=== PATIENT | female | born 1955 | race Caucasian/White ===

== ENCOUNTER → 2018-02-14 09:31 | Outpatient (CLI) | payer OTHER, SELFPAY ==
--- NOTE | 2018-02-14 | DI.US.S_ITS ---
PROCEDURE: US PELVIC COMPLETE INDICATIONS: POST MENOPAUSAL BLEEDING TECHNIQUE: Real-time scanning was performed of the pelvic organs, with image documentation. Additional endovaginal scanning was necessary due to incomplete visualization of the adnexal and endometrial structures by transabdominal scanning. COMPARISON: None. FINDINGS: Transabdominal scanning: Limited scanning through the kidneys shows no hydronephrosis. No pathologic free abdominal or pelvic fluid. Endovaginal scanning: Uterus: Uterus is normal in size at 7.5 x 3.6 cm. The endometrium measures 4.0 mm in combined thickness. Trace endometrial fluid present and there is 8.8 x 0.6 x 0.4 cm echogenic, polypoid endometrial mass present. Vascular stalk is present. Multiple fibroids present largest measuring 2.9 x 2.2 x 2.8 cm. Ovaries: Simple cyst involves the right ovary measuring 13 mm and there are multiple subcentimeter left follicular cysts. No adnexal masses. IMPRESSION: 1. Echogenic, polypoid appearing endometrial mass present with a vascular stalk and there is small amount of adjacent endometrial free fluid. Although findings may be related to polyp, other endometrial neoplastic processes including endometrial carcinoma cannot be excluded. Gynecologic consultation is recommended. 2. Multiple fibroids largest measuring up to 2.9 cm. Dictated by: Leodan VALENZUELA Interpreted: Marie Simmons MD on 02/14/2018 at 12:53 Approved by: Marie Simmons M.D. on 02/14/2018 at 15:10
[2018-02-14 10:27] LABS: Alanine Aminotransferase 34 IU/L (9-52); Albumin 4.2 g/dL (3.5-5.0); Albumin Globulin Ratio 1.4 (1.0-2.8); Alkaline Phosphatase 71 U/L (38-126); Aspartate Aminotransferase 47 IU/L (14-36); BUN Creatinine Ratio 24.3 (6-22); Bilirubin Total 0.5 mg/dL (0.2-1.3); Calcium 9.1 mg/dL (8.4-10.2); Cholesterol 197 mg/dL (140-199); Estimated Glomerular Filt Rate > 60.0 mL/min (>60); Glucose 98 mg/dL (80-110); HDL Cholesterol 74 mg/dL (40-60); HEMOLYSIS 15 (0-50); LDL Cholesterol Calculated 111 mg/dL (<100); Potassium 4.6 mmol/L (3.4-5.1); Sodium 141 mmol/L (137-145); Total Protein 7.2 g/dL (6.3-8.2); Triglycerides 60 mg/dL (35-150)
== END ==
PROVIDERS: PCP Internal Medicine; Visit Provider Internal Medicine
DX: Z00.00 Encounter for general adult medical examination without abnormal findings (principal); D25.9 Leiomyoma of uterus, unspecified; N95.0 Postmenopausal bleeding
CPT/HCPCS: 36415; 76830; 76856; 80053; 80061

== ENCOUNTER → 2018-09-02 08:05 | Outpatient (CLI) | payer OTHER, SELFPAY ==
--- NOTE | 2018-09-02 08:06 | DI.US.S_ITS ---
PROCEDURE: US PELVIC COMPLETE INDICATIONS: ENDOMETRIAL POLYP TECHNIQUE: Real-time scanning was performed of the pelvic organs, with image documentation. Additional endovaginal scanning was necessary due to incomplete visualization of the adnexal and endometrial structures by transabdominal scanning. COMPARISON: [facility], , US PELVIC COMPLETE, 02/14/2018, 10:39. FINDINGS: Transabdominal scanning: Limited scanning through the kidneys shows no hydronephrosis. No pathologic free abdominal or pelvic fluid. Endovaginal scanning: Uterus: Uterus is normal in size at 7.1 x 3.2 cm. The endometrium measures 3.5 mm in combined thickness. Isoechoic, solid appearing polypoid mass again seen within the endometrial complex not significantly changed measuring 0.6 x 0.4 x 0.6 cm. 3 intramural fibroids redemonstrated, largest measuring 3.3 x 2.0 x 3.2 cm unchanged from prior examination. Ovaries: The ovaries normal size measuring 3.0 x 1.1 x 1.3 cm on the right and 2.2 x 1.2 x 1.0 cm on the left. Simple cyst involves the right ovary measuring 13 mm. IMPRESSION: 1. Polypoid mass again visualized within the endometrial complex not significantly changed from prior examination likely representing an endometrial polyp. If indicated, hysterosonogram could be performed for further characterization otherwise continued sonographic surveillance is recommended to exclude other endometrial processes such as endometrial carcinoma. 2. Multiple intramural fibroids redemonstrated. 3. Simple right ovarian cyst measuring 13 mm. Dictated by: Leodan W[place] Interpreted: Rae Davis MD on 09/02/2018 at 10:31 Approved by: Rae Davis MD, PhD on 09/02/2018 at 16:21
== END ==
PROVIDERS: PCP Internal Medicine; Visit Provider Specialist
DX: D25.1 Intramural leiomyoma of uterus (principal); N84.0 Polyp of corpus uteri; N83.291 Other ovarian cyst, right side; R93.89 Abnormal findings on diagnostic imaging of other specified body structures
CPT/HCPCS: 76830; 76856

== ENCOUNTER → 2020-09-22 14:35 | Outpatient (ROUT) | payer OTHER, SELFPAY ==
[2020-09-22 14:55] LABS: Alanine Aminotransferase 33 IU/L (<35); Albumin 4.4 g/dL (3.5-5.0); Albumin Globulin Ratio 1.5 (1.0-2.8); Alkaline Phosphatase 83 U/L (38-126); Aspartate Aminotransferase 55 IU/L (14-36); BUN Creatinine Ratio 22.9 (6-22); Bilirubin Total 0.6 mg/dL (0.2-1.3); Blood Urea Nitrogen 16 mg/dL (7-17); Calcium 9.6 mg/dL (8.4-10.2); Carbon Dioxide 27 mmol/L (22-32); Chloride 106 mmol/L (98-107); Cholesterol 219 mg/dL (140-199); Estimated Glomerular Filt Rate > 60.0 mL/min (>60); Glucose 100 mg/dL (80-110); HDL Cholesterol 89 mg/dL (40-60); HEMOLYSIS < 15 (0-50); LDL Cholesterol Calculated 117 mg/dL (<100); Potassium 4.4 mmol/L (3.4-5.1); Sodium 138 mmol/L (137-145); Total Protein 7.4 g/dL (6.3-8.2); Triglycerides 64 mg/dL (35-150)
== END ==
PROVIDERS: PCP Internal Medicine; Visit Provider Internal Medicine
DX: Z00.00 Encounter for general adult medical examination without abnormal findings (principal); E78.5 Hyperlipidemia, unspecified
CPT/HCPCS: 80053; 80061

== ENCOUNTER → 2020-10-12 15:24 | Outpatient (CLI) | payer OTHER, SELFPAY ==
--- NOTE | 2020-10-12 | DI.MG.S_ITS ---
BILATERAL DIGITAL SCREENING MAMMOGRAM 3D/2D WITH CAD: 10/12/2020 CLINICAL: Routine screening. Comparison is made to exams dated: 12/06/2017 mammogram - [facility], 02/21/2016 mammogram, and 09/09/2014 mammogram - [facility]. There are scattered fibroglandular elements in both breasts. Current study was also evaluated with a Computer Aided Detection (CAD) system. No significant masses, calcifications, or other findings are seen in either breast. There has been no significant interval change. IMPRESSION: NEGATIVE There is no mammographic evidence of malignancy. A 1 year screening mammogram is recommended. This exam was interpreted at Station ID: [id number]. NOTE: For mammograms, a report in lay terms will be sent to the patient. Approximately 15% of breast malignancies will not be visualized mammographically. In the management of a palpable breast mass, a negative mammogram must not discourage biopsy of a clinically suspicious lesion. Electronically Signed By: Ray stover/eleonora:10/12/2020 16:42:16 letter sent: Normal Exam ACR BI-RADS Category 1: Negative 3341F
== END ==
PROVIDERS: PCP Internal Medicine; Referring Provider Internal Medicine; Visit Provider Internal Medicine
DX: Z12.31 Encounter for screening mammogram for malignant neoplasm of breast (principal)
CPT/HCPCS: 77063; 77067

== ENCOUNTER → 2022-02-17 09:59 | Outpatient (CLI) | payer MEDICARE, OTHER, SELFPAY ==
[2022-02-17 10:31] LABS: Hematocrit 44.6 % (36-46); Hemoglobin 15.2 g/dL (12.0-16.0); Mean Corpuscular HGB Conc 34.1 % (30-36); Mean Corpuscular Hemoglobin 29.1 PG (26-34); Mean Corpuscular Volume 85.2 fL (80-100); Platelet Count 177 X10^3/uL (150-400); Red Blood Cell Count 5.23 X10^6/uL (4.0-5.2); Red Cell Distribution Width 12.8 % (11.6-14.8); White Blood Cell Count 4.3 X10^3/uL (4.5-11.0)
[2022-02-17 10:47] LABS: Alanine Aminotransferase 39 IU/L (<35); Albumin 4.8 g/dL (3.5-5.0); Albumin Globulin Ratio 1.5 (1.0-2.8); BUN Creatinine Ratio 30.6 (6-22); Bilirubin Total 0.8 mg/dL (0.2-1.3); Blood Urea Nitrogen 22 mg/dL (7-17); Calcium 8.9 mg/dL (8.4-10.2); Carbon Dioxide 29 mmol/L (22-32); Chloride 105 mmol/L (98-107); Cholesterol 242 mg/dL (140-199); Estimated Glomerular Filt Rate > 60 mL/min (>60); Globulin 3.2 g/dL (1.7-4.1); Glucose 96 mg/dL (80-110); HDL Cholesterol 78 mg/dL (40-60); HEMOLYSIS 72 (0-50); LDL Cholesterol Calculated 149 mg/dL (<100); Sodium 139 mmol/L (137-145); Triglycerides 73 mg/dL (35-150)
[2022-02-17 10:48] LABS: Aspartate Aminotransferase 75 IU/L (14-36)
[2022-02-17 10:49] LABS: Alkaline Phosphatase 68 U/L (38-126); Potassium 4.5 mmol/L (3.4-5.1)
[2022-02-17 11:15] LABS: TSH w/ Reflex to FT4 1.56 uIU/mL (0.47-4.68)
[2022-02-17 19:21] LABS: Hepatitis B Surface Antigen NEGATIVE s/c (NEGATIVE)
[2022-02-17 19:22] LABS: Hep C Virus Ab w/Reflex Quant NEGATIVE s/c (NEGATIVE)
[2022-02-17 19:39] LABS: HEMOLYSIS < 15 (0-50); Iron 114 ug/dL (37-170)
[2022-02-17 19:50] LABS: Percent Iron Saturation 37 % (15-50); Total Iron Binding Capacity 310 ug/dL (265-497); Transferrin 246 mg/dL (206-381)
[2022-02-17 20:11] LABS: Ferritin 107 ng/mL (11-264)
== END ==
PROVIDERS: PCP Internal Medicine; Referring Provider Internal Medicine; Visit Provider Internal Medicine
DX: E78.2 Mixed hyperlipidemia (principal); E83.19 Other disorders of iron metabolism; N95.1 Menopausal and female climacteric states; Z11.59 Encounter for screening for other viral diseases
CPT/HCPCS: 36415; 80053; 80061; 82728; 83540; 83550; 84443; 85027; 86803; 87340

== ENCOUNTER → 2022-03-22 10:47 | Outpatient (CLI) | payer MEDICARE, OTHER, SELFPAY ==
--- NOTE | 2022-03-22 | DI.MG.S_ITS ---
BILATERAL DIGITAL SCREENING MAMMOGRAM 3D/2D WITH CAD: 03/22/2022 CLINICAL: Routine screening. Comparison is made to exams dated: 10/12/2020 mammogram, 12/06/2017 mammogram - [facility], and 02/21/2016 mammogram - [facility]. There are scattered fibroglandular elements in both breasts. Current study was also evaluated with a Computer Aided Detection (CAD) system. No significant masses, calcifications, or other findings are seen in either breast. There has been no significant interval change. IMPRESSION: NEGATIVE There is no mammographic evidence of malignancy. A 1 year screening mammogram is recommended. This exam was interpreted at Station ID: [id number]. NOTE: For mammograms, a report in lay terms will be sent to the patient. Approximately 15% of breast malignancies will not be visualized mammographically. In the management of a palpable breast mass, a negative mammogram must not discourage biopsy of a clinically suspicious lesion. Electronically Signed By: Ray stover/eleonora:03/22/2022 11:27:52 letter sent: Normal Exam ACR BI-RADS Category 1: Negative 3341F
== END ==
PROVIDERS: PCP Internal Medicine; Referring Provider Internal Medicine; Visit Provider Internal Medicine
DX: Z12.31 Encounter for screening mammogram for malignant neoplasm of breast (principal)
CPT/HCPCS: 77063; 77067

== ENCOUNTER 2023-02-20 11:49 | Emergency (ER) | payer MEDICARE, OTHER, SELFPAY ==
[2023-02-20] VITALS (12 sets, daily range): BP systolic 125–168; BP diastolic 66–105; PULSE 57–72; RESP 16–24; TEMP 36.4; O2SAT 98–100; BMI 27.2
--- NOTE | 2023-02-20 12:10 | DI.RAD.S_ITS ---
PROCEDURE: XR CHEST 1V INDICATIONS: chest pain TECHNIQUE: One view of the chest was acquired. COMPARISON: None. FINDINGS: Surgical changes and devices: None. Lungs and pleura: Lungs are clear. No pleural effusions or pneumothorax. Mediastinum: Mediastinal contours appear normal. Heart size is normal. Bones and chest wall: No suspicious bony lesions. Overlying soft tissues appear unremarkable. IMPRESSION: No acute cardiopulmonary process. Dictated by: Roger Watkins M.D. on 02/20/2023 at 11:38 Approved by: Roger Watkins M.D. on 02/20/2023 at 11:38
--- NOTE | 2023-02-20 14:08 | PC.NURSE ---
Patient reports improvement in symptoms. Drinking oral fluids, tolerating well.
--- NOTE | 2023-02-20 15:13 | PC.NURSE ---
unable to obtain iv access. Dr. Castellon aware.
--- NOTE | 2023-02-20 15:28 | ED_ITS ---
HPI - Syncope General Chief Complaint: Syncope Stated Complaint: passed out and threw up in car Time Seen by Provider: 02/20/23 15:19 Source: patient Mode of arrival: Ambulatory Limitations: no limitations History of Present Illness HPI narrative: This is a 67-year-old female with history of x2. Patient states today she went to donate blood she got about [address] her duration started feel, dizzy and had a syncopal episode where she passed out. She was lying or seated when this occurred. She states it lasted less than a minute. Was witnessed by the staff. She did have an episode of urinary incontinence. She felt woozy afterwards and sort of nauseated. They tried to feed her she was not really able to eat food but she is had half cup of electrolyte water and half cup of regular water. She slowly improved. She started to feel better and states that she went to the bathroom had a bowel movement which she describes as large. She denies any diarrhea or black or bloody stools. She states she did not have any chest pain or shortness of breath during this episode. No urinary symptoms otherwise no dysuria urgency or frequency. And then got in the car on the way home started feeling lightheaded and nauseated and passed out again for several seconds. Patient states she did not feel totally normal in between each episode. Patient states she does not take any daily medications. She states she feels hungry right now. She states she feels back to normal. She denies any medical issues otherwise. She states she had issues with some lab draws when she was younger but has had C-sections and does not typically have issues at this time. She has never donated blood before. She states her only prior surgery is . She is allergic to ampicillin. No tobacco, 1 glass of wine nightly, no illicit. She is accompanied by her who brought her here. Related Data Previous Rx's Medication Instructions Recorded estradiol 0.01% (0.1 mg/gram) 1 appful vaginal DAILY #42.5 grams 08/30/22 vaginal cream Allergies Allergy/AdvReac Type Severity Reaction Status Date / Time ampicillin Allergy Verified 07/13/22 08:59 Review of Systems Review of Systems ROS Unobtainable: All systems reviewed & are unremarkable except as noted in HPI and below Patient History Medical History Medicare annual wellness visit, initial Menopausal syndrome Mixed hyperlipidemia Social History Smoking Status: Never smoker Smoking Status: Never smoker alcohol intake frequency: 0-2 drinks per day Substance Use Type: does not use Exam Narrative Exam Narrative: GENERAL: Alert and oriented x three, well-nourished female in mild distress. HEENT: Head normocephalic, atraumatic, EOMI, pupils reactive, face symmetric, moist mucous membranes, no pale conjunctiva. NECK: Supple, full range of motion CARDIOVASCULAR: Regular rate and rhythm without murmurs, rubs or gallops. No JVD. No swelling bilateral lower extremities. RESPIRATORY: Breath sounds equal bilaterally, no wheezes rales or rhonchi. No tachypnea or accessory muscle use. ABDOMEN: Soft, nontender. Normoactive bowel sounds all 4 quadrants. No guarding or rebound, rigidity, no mass : No CVA tenderness EXTREMITIES: Normal range of motion, no clubbing or edema. Neurovascularly intact NEUROLOGICAL: Cranial nerves II through XII grossly intact. Moving all extremities SKIN: Warm, dry, no petechiae, no rashes or lesions. Initial Vital Signs Initial Vital Signs: Vital Signs Temperature 97.5 F L 02/20/23 12:07 Pulse Rate 60 02/20/23 12:07 Respiratory Rate 18 02/20/23 12:07 Blood Pressure 149/105 H 02/20/23 12:07 Pulse Oximetry 99 02/20/23 12:07 Oxygen Delivery Method Room Air 02/20/23 12:07 Course Orders Ordered: ED Orders 02/20/23 12:10 XR chest 1V Stat EKG-12 Lead Stat Discontinued Medications Aspirin (Aspirin 81 Mg Chew Tab) 324 mg PO NOW ONE Stop: 02/20/23 12:11 Last Admin: 02/20/23 12:12 Dose: Not Given Documented By: RLS Vital Signs Vital signs: Vital Signs - 8 hr 02/20/23 12:07 02/20/23 12:29 02/20/23 12:30 Temperature 97.5 F L Pulse Rate 60 61 60 Respiratory Rate 18 Blood Pressure 149/105 H Pulse Oximetry 99 99 99 Oxygen Delivery Method Room Air 02/20/23 12:31 02/20/23 12:31 02/20/23 13:00 Temperature Pulse Rate 61 Respiratory Rate Blood Pressure 168/83 H 141/77 H Pulse Oximetry 99 Oxygen Delivery Method 02/20/23 13:00 02/20/23 13:30 02/20/23 13:30 Temperature Pulse Rate 59 L 58 L Respiratory Rate 16 Blood Pressure 134/74 Pulse Oximetry 100 100 Oxygen Delivery Method Room Air 02/20/23 14:00 02/20/23 14:01 02/20/23 14:01 Temperature Pulse Rate 60 57 L Respiratory Rate 24 22 Blood Pressure 131/66 Pulse Oximetry 99 99 Oxygen Delivery Method Room Air 02/20/23 14:30 02/20/23 15:00 02/20/23 15:00 Temperature Pulse Rate 58 L 62 Respiratory Rate 20 18 Blood Pressure 126/71 Pulse Oximetry 98 98 Oxygen Delivery Method 02/20/23 16:04 02/20/23 15:30 02/20/23 15:30 Temperature Pulse Rate 72 66 Respiratory Rate 18 23 Blood Pressure 125/71 Pulse Oximetry 98 99 Oxygen Delivery Method MDM - Syncope ECG Data Attestation: I personally reviewed and interpreted this ECG as follows: Interpretation: Sinus bradycardia, rate of 56 CT, 186, QRS of 84 and QTC of 432. No acute ST changes appreciated. Q-wave in V1 V2. No priors for comparison. MDM Narrative Medical decision making narrative: Discussed with patient she is feeling improved she ate and drank here after my evaluation tolerated well ambulated without issue. Discussed I would like to obtain blood work they attempted twice and patient politely refused additional lab draws. She is since had some water as well. After discussion patient elect s to return we discussed that syncopal episodes are not atypical and do sometimes happen during or after blood donation but having a secondary episode while this may have been that she had fully recovered is more concerning. EKG does show clear change. She is currently asymptomatic. Discussed I would recommend additional lab work she does not have any available. After some discussion patient elects to return home but with plan to return if feeling worse or having any recurrent issues or generally feeling unwell. We did discuss would be appropriate for her to follow up outpatient to have labs checked as well. Discharge Plan Departure Patient Disposition: Home Clinical Impression: Syncope, History of blood donation Instructions: DI for Syncope in Adults (Fainting) Activity Restrictions/Additional Instructions: Sometimes people can pass out when they have donated blood, if you have recurrent episodes or symptoms today or in the next several days that is not normal and you need to be re-evaluated. I would recommend some baseline labs as you have not had any recently. Please return for new or worsening symptoms, recurrent episodes of passing out, severe headaches, new chest pain, shortness of breath, persistent vomiting, new swelling in her extremities or other new or concerning symptoms. Prescriptions: No Action estradiol 0.01 % (0.1 mg/gram) cream 1 appful vaginal DAILY Qty: 42.5 4RF Referrals: Hollis Izquierdo MD [Primary Care Provider] - Stand Alone Forms: Patient Portal/API
== END 2023-02-20 16:25 | disposition home or self-care (01) ==
PROVIDERS: Emergency Provider Emergency Medicine; PCP Internal Medicine
DX: R55 Syncope and collapse (principal); R07.9 Chest pain, unspecified
CPT/HCPCS: 71045; 93005; 93010; 99283; 99284

== ENCOUNTER → 2023-02-27 08:40 | Outpatient (CLI) | payer MEDICARE, OTHER, SELFPAY ==
[2023-02-27 09:50] LABS: Hematocrit 42.4 % (36-46); Hemoglobin 14.3 g/dL (12.0-16.0); Mean Corpuscular HGB Conc 33.9 % (30-36); Mean Corpuscular Hemoglobin 28.7 PG (26-34); Mean Corpuscular Volume 84.8 fL (80-100); Platelet Count 178 X10^3/uL (150-400); Red Blood Cell Count 4.99 X10^6/uL (4.0-5.2); Red Cell Distribution Width 13.3 % (11.6-14.8); White Blood Cell Count 4.2 X10^3/uL (4.5-11.0)
[2023-02-27 10:29] LABS: HEMOLYSIS < 15 (0-50); Iron 96 ug/dL (37-170)
[2023-02-27 10:32] LABS: Alanine Aminotransferase 25 IU/L (<35); Albumin 4.1 g/dL (3.5-5.0); Albumin Globulin Ratio 1.4 (1.0-2.8); Alkaline Phosphatase 75 U/L (38-126); Aspartate Aminotransferase 47 IU/L (14-36); BUN Creatinine Ratio 29.6 (6-22); Bilirubin Total 0.5 mg/dL (0.2-1.3); Blood Urea Nitrogen 21 mg/dL (7-17); Calcium 8.9 mg/dL (8.4-10.2); Carbon Dioxide 29 mmol/L (22-32); Chloride 104 mmol/L (98-107); Cholesterol 225 mg/dL (140-199); Estimated Glomerular Filt Rate > 60 mL/min (>60); Globulin 2.9 g/dL (1.7-4.1); Glucose 101 mg/dL (80-110); HDL Cholesterol 74 mg/dL (40-60); HEMOLYSIS < 15 (0-50); LDL Cholesterol Calculated 133 mg/dL (<100); Potassium 4.3 mmol/L (3.4-5.1); Sodium 138 mmol/L (137-145); Triglycerides 91 mg/dL (35-150)
[2023-02-27 10:45] LABS: Percent Iron Saturation 32 % (15-50); Total Iron Binding Capacity 303 ug/dL (265-497); Transferrin 229 mg/dL (206-381)
[2023-02-27 11:07] LABS: TSH w/ Reflex to FT4 1.72 uIU/mL (0.47-4.68)
[2023-02-27 11:08] LABS: Ferritin 91 ng/mL (11-264)
== END ==
PROVIDERS: PCP Internal Medicine; Referring Provider Internal Medicine; Visit Provider Internal Medicine
DX: R55 Syncope and collapse (principal); N95.1 Menopausal and female climacteric states; E78.2 Mixed hyperlipidemia
CPT/HCPCS: 36415; 80053; 80061; 82728; 83540; 83550; 84443; 85027

== ENCOUNTER → 2023-03-26 | Outpatient (CLI) | payer MEDICARE, OTHER, SELFPAY ==
--- NOTE | 2023-03-26 | DI.MG.S_ITS ---
BILATERAL DIGITAL SCREENING MAMMOGRAM 3D/2D WITH CAD: 03/26/2023 CLINICAL: Routine screening. Comparison is made to exams dated: 03/22/2022 mammogram, 10/12/2020 mammogram, and 12/06/2017 mammogram - [facility]. There are scattered areas of fibroglandular density in both breasts (category b / 25%-50% glandular tissue). Current study was also evaluated with a Computer Aided Detection (CAD) system. No significant masses, calcifications, or other findings are seen in either breast. There has been no significant interval change. IMPRESSION: NEGATIVE There is no mammographic evidence of malignancy. A 1 year screening mammogram is recommended. Based on the Tyrer Cuzick model (a risk assessment model) the patient's lifetime risk is 6.9% and her 10 year risk is 3.5%. According to the ACR, ACS, and NCCN guidelines, an annual breast MRI exam along with mammogram is recommended if the patient's lifetime risk is 20% or greater. This exam was interpreted at Station ID: [id number]. NOTE: For mammograms, a report in lay terms will be sent to the patient. Approximately 15% of breast malignancies will not be visualized mammographically. In the management of a palpable breast mass, a negative mammogram must not discourage biopsy of a clinically suspicious lesion. Electronically Signed By: Reid diaz/eleonora:03/26/2023 10:33:30 letter sent: Normal Exam ACR BI-RADS Category 1: Negative 3341F
--- NOTE | 2023-03-26 09:22 | DI.RAD.S_ITS ---
Bone Density Report Name: ALLIE AWAN Age: 67 Sex: Female Ethnicity: White Date of : 1955 Indication: postmenopausal; screening for osteoporosis; Referring Provider: BIRDIE ALEJANDRE Study: Bone densitometry was performed. Exam Date: March 26, 2023 Accession number: [id number] Bone Density: Region BMD T-score Z-score Classification AP Spine(L1, L2, L3) 0.798 -2.0 -0.2 Osteopenia Femoral Neck (Left) 0.820 -0.3 1.3 Normal Total Hip (Left) 0.887 -0.4 0.8 Normal Femoral Neck (Right) 0.899 0.4 2.0 Normal Total Hip (Right) 0.941 0.0 1.3 Normal Total Hip Mean 0.914 -0.2 1.1 Normal World Health Organization criteria for BMD impression classify patients as: Normal (T-score at or above -1.0), Osteopenia (T-score between -1.0 and -2.5), or Osteoporosis (T-score at or below -2.5). 10-year Fracture Risk(1): Major Osteoporotic Fracture 7.2% Hip Fracture 0.3% Reported Risk Factors: [place] (), Neck BMD=0.820, BMI=25.8 (1) FRAX(R) Version 3.08. Fracture probability calculated for an untreated patient. Fracture probability may be lower if the patient has received treatment. Impression: The patient has low bone mass, based on the Total Spine T-score. The patient has an estimated ten-year risk of hip fracture of 0.3% and an estimated ten-year risk of major fracture of 7.2%, based on the WHO FRAX algorithm. Discussion: BONE DENSITY IS LOW AT ONE OR MORE SKELETAL SITES. This patient's lowest T-score is low at one or more skeletal sites. It meets the World Health Organization's (WHO) criteria for low bone mass (T-score between -1.0 and -2.5). The patient's 10-year risk of fracture as calculated by FRAX is less than the threshold where pharmacological therapy is recommended by the National Osteoporosis Foundation (NOF). However, all treatment decisions require clinical judgment and consideration of individual patient factors, including patient preferences, comorbidities, previous drug use, risk factors not captured in the FRAX model (e.g., frailty, falls, vitamin D deficiency, increased bone turnover, interval significant decline in bone density) and possible under or overestimation of fracture risk by FRAX. The patient should follow a healthful lifestyle (good nutrition with adequate calcium and vitamin D, and appropriate weight-bearing exercise). Follow-Up: Consider repeating this study in 2 to 3 years to reassess this patient's status, or sooner if there is some new clinical indication. Reported by: MIGUEL GARCIA M.D. on 03/26/2023 10:22:00 AM.
== END ==
PROVIDERS: PCP Internal Medicine; Referring Provider Internal Medicine; Visit Provider Internal Medicine
DX: Z78.0 Asymptomatic menopausal state (principal); Z12.31 Encounter for screening mammogram for malignant neoplasm of breast; Z13.820 Encounter for screening for osteoporosis; M85.88 Other specified disorders of bone density and structure, other site
CPT/HCPCS: 77063; 77067; 77080

== ENCOUNTER 2023-07-26 03:48 | Emergency (ER) | payer MEDICARE, OTHER, SELFPAY ==
[2023-07-26] VITALS (17 sets, daily range): BP systolic 102–154; BP diastolic 56–83; PULSE 58–145; RESP 10–31; TEMP 36.1; O2SAT 98–100
--- NOTE | 2023-07-26 03:55 | ED_ITS ---
HPI - General Adult General Chief complaint: Syncope Stated complaint: syncope Time Seen by Provider: 07/26/23 03:51 Source: patient, family and EMS Mode of arrival: EMS Limitations: no limitations History of Present Illness HPI narrative: Patient is a 67-year-old female. No prior diagnosed medical problems. Was seen here in the emergency department in January where she was having syncopal episodes that had a normal EKG and was attributed to donating blood. She is had no episodes since then. She went to bed last night at her normal state of health. She got up shortly before arrival here in the emergency department to use the restroom. While she was on the toilet she stated that she became very lightheaded and became nauseous and then passed out. EMS was called by the patient's . She did have what appeared to be syncopal episodes per EMS in route here to the ER. She was in AFib with RVR per the EMS monitor. She is no history of this. She has no palpitations or chest pain. No shortness of breath. No new medications. She does not feel like her heart is beating fast. She states she is having quite a bit of nausea. Related Data Previous Rx's Medication Instructions Recorded estradiol 0.01% (0.1 mg/gram) 1 appful vaginal DAILY #42.5 grams 03/02/23 vaginal cream Allergies Allergy/AdvReac Type Severity Reaction Status Date / Time ampicillin Allergy Verified 03/02/23 09:27 Review of Systems Review of Systems ROS Unobtainable: All systems reviewed & are unremarkable except as noted in HPI and below Patient History Medical History Mixed hyperlipidemia Menopausal syndrome Social History Smoking Status: Never smoker Smoking Status: Never smoker alcohol intake frequency: 0-2 drinks per day Substance Use Type: does not use Exam Initial Vital Signs Initial Vital Signs: Vital Signs Temperature 97 F L 07/26/23 03:45 Pulse Rate 142 H 07/26/23 03:45 Respiratory Rate 28 H 07/26/23 03:45 Blood Pressure 132/68 07/26/23 03:45 Pulse Oximetry 100 07/26/23 03:45 Oxygen Delivery Method Room Air 07/26/23 03:45 Const General: acute distress HENMT Head: contusion (Right forehead) Resp Effort & Inspection: normal respiratory effort and tachypneic Auscultation: clear to auscultation bilaterally Cardio Rate: tachycardic Rhythm: abnormal rhythm GI Inspection: normal to inspection and non-distended Skin General: no rashes or lesions noted Neuro General: patient alert, patient awake, patient oriented x3 and moves all extremities Extrem General: normal to inspection and capillary refill normal Course Orders Ordered: ED Orders 07/26/23 EKG-12 Lead Stat 07/26/23 03:50 Complete Blood Count AUTO DIFF Stat Comprehensive Metabolic Panel Stat Lipase Stat Magnesium Stat PTT Partial Thromboplastin Checo Stat Prothrombin Time INR Stat Troponin & CK Cardiac Panel Stat 07/26/23 03:52 CT head/brain wo con Stat EKG-12 Lead Stat Discontinued Medications Sodium Chloride (Normal Saline 0.9%) 1,000 mls @ 1,000 mls/hr IV BOLUS ONE Stop: 07/26/23 04:50 Last Infusion: 07/26/23 04:38 Dose: Infused Documented By: Admin: 07/26/23 04:00 Dose: 1,000 mls/hr Documented By: DEVON Ondansetron HCl (Ondansetron 4 Mg/2 Ml Inj) 4 mg IV NOW ONE Stop: 07/26/23 04:13 Last Admin: 07/26/23 04:28 Dose: 4 mg Documented By: DEVON Propofol (Propofol 200 Mg/20 Ml Vial) 200 mg IV NOW ONE Stop: 07/26/23 03:57 Vital Signs Vital signs: Vital Signs - 8 hr 07/26/23 03:45 07/26/23 03:52 07/26/23 03:53 Temperature 97 F L Pulse Rate 142 H 145 H 134 H Respiratory Rate 28 H 15 26 H Blood Pressure 132/68 Pulse Oximetry 100 99 99 Oxygen Delivery Method Room Air 07/26/23 03:53 07/26/23 04:00 07/26/23 04:04 Temperature Pulse Rate 69 Respiratory Rate 25 H Blood Pressure 132/68 128/61 Pulse Oximetry 100 Oxygen Delivery Method 07/26/23 04:04 07/26/23 04:05 07/26/23 04:05 Temperature Pulse Rate 58 L 58 L Respiratory Rate 10 L 11 L Blood Pressure 115/58 L Pulse Oximetry 99 99 Oxygen Delivery Method 07/26/23 04:10 07/26/23 04:10 07/26/23 04:16 Temperature Pulse Rate 60 67 Respiratory Rate 21 31 H Blood Pressure 116/62 Pulse Oximetry 100 100 Oxygen Delivery Method 07/26/23 04:16 07/26/23 04:30 07/26/23 04:30 Temperature Pulse Rate 63 Respiratory Rate 23 Blood Pressure 102/56 L 122/67 Pulse Oximetry 100 Oxygen Delivery Method 07/26/23 04:35 07/26/23 04:35 07/26/23 04:40 Temperature Pulse Rate 69 Respiratory Rate 22 Blood Pressure 154/83 H 133/73 Pulse Oximetry 98 Oxygen Delivery Method 07/26/23 04:40 Temperature Pulse Rate 65 Respiratory Rate 18 Blood Pressure Pulse Oximetry 100 Oxygen Delivery Method Medical Decision Making Medical Records Medical records reviewed: Yes I reviewed the patient's medical records. Lab Data Lab results reviewed: Yes I reviewed the patient's lab results. 07/26/23 03:50 07/26/23 03:50 Labs: Lab Results 07/26/23 Range/Units 03:50 WBC 8.1 (4.5-11.0) X10^3/uL RBC 5.26 H (4.0-5.2) X10^6/uL Hgb 15.0 (12.0-16.0) g/dL Hct 44.5 (36-46) % MCV 84.6 (80-100) fL MCH 28.5 (26-34) PG MCHC 33.7 (30-36) % RDW 13.3 (11.6-14.8) % Plt Count 208 (150-400) X10^3/uL Neut % (Auto) 44.1 L (50-75) % Lymph % (Auto) 48.4 H (25-40) % [place] % (Auto) 5.1 (3-14) % Eos % (Auto) 1.6 L (2-4) % Baso % (Auto) 0.8 (0-2) % Neut # (Auto) 3600 (8637-9253) /uL Lymph # (Auto) 3900 (8797-7536) /uL [place] # (Auto) 400 (0-900) /uL Eos # (Auto) 100 (0-450) /uL Baso # (Auto) 100 (0-100) /uL PT 11.2 (10.1-12.7) SECONDS INR 1.0 (0.9-1.3) APTT 29 (26-36) SECONDS Sodium 139 (137-145) mmol/L Potassium 3.4 (3.4-5.1) mmol/L Chloride 105 (98-107) mmol/L Carbon Dioxide 20 L (22-32) mmol/L BUN 23 H (7-17) mg/dL Creatinine 0.84 (0.52-1.04) mg/dL Estimated GFR > 60 (>60) mL/min BUN/Creatinine Ratio 27.4 H (6-22) Glucose 175 H (80-110) mg/dL Calcium 9.2 (8.4-10.2) mg/dL Magnesium 1.8 (1.6-2.3) mg/dL Total Bilirubin 0.3 (0.2-1.3) mg/dL AST 54 H (14-36) IU/L ALT 30 (<35) IU/L Alkaline Phosphatase 94 (38-126) U/L Total Creatine Kinase 75 (30-135) U/L Troponin I < 0.012 (0.01-0.034) ng/mL Total Protein 7.4 (6.3-8.2) g/dL Albumin 4.2 (3.5-5.0) g/dL Globulin 3.2 (1.7-4.1) g/dL Albumin/Globulin Ratio 1.3 (1.0-2.8) Lipase 363 H (23-300) U/L ECG Data Attestation: I personally reviewed and interpreted this ECG as follows: Interpretation: Atrial fibrillation Ventricular rate of 131 Normal axis QRS [address] depressions leads V4 V5 No ST elevations Repeat EKG Sinus rhythm Ventricular rate is 64 Normal axis QRS [address] T wave changes MDM Narrative Medical decision making narrative: Patient initially arrived in AFib with RVR. It did appear at 1 point she had a pause where it did not appear to be any QRS complexes. She did seem to be symptomatic during this time. Given the unstable nature of her AFib decision was made to attempt a cardioversion. Consent was signed. Prior to cardioversion she had a another syncopal episode. Unsure what the rhythm was during this time but afterwards the patient did go into a sinus rhythm with a rate of 64. Remaining in sinus rhythm she did have periods of time where she was clearly in a third-degree heart block. These episodes are associated with her syncopal episodes and seem to have a precursor of nausea and vomiting. Each of the episodes last approximately 5 seconds and then seemed to resolve on their own. Given the short time of the symptoms do not know if she has any blood pressure changes but while she is in sinus rhythm she has a relatively normal blood pressure. Given the short nature of the symptoms transcutaneous pacing is not started however we are prepared to provide this intervention if needed. She continues to have no chest pain. I did discuss the case with Dr. Rawls Cardiology at [facility] who recommends the patient be transferred for further evaluation. [facility] has no beds. I did discuss the case with Dr. Bonilla bed and breakfast cook at [facility] who accepts the patient for transfer. Patient is currently stable for transport. We will send by air given the severity of her symptoms. Critical Care Time Critical Care Time Critical Care Time: Yes Total Critical Care Time: 40 Attestation: The high probability of a clinically significant, sudden or life threatening deterioration of the [cardiovascular] system(s) required my full and direct attention, intervention and personal management. The aggregate critical care time was [40] minutes. This time is in addition to time spent performing reported procedures but includes the following: [x] Data Review and interpretation [x] Patient assessment and monitoring of vital signs [x] Documentation [x] Medication orders and management Discharge Plan Departure Patient Disposition: [facility] Clinical Impression: Heart block AV third degree, Syncope, Atrial fibrillation with RVR Prescriptions: No Action estradiol 0.01 % (0.1 mg/gram) cream 1 appful vaginal DAILY Qty: 42.5 4RF Referrals: Hollis Izquierdo MD [Primary Care Provider] -
[2023-07-26] MEDS: SODIUM CHLORIDE 0.9% 1,000 ML 1000 ML IV (04:00)
[2023-07-26 04:03] LABS: Add Manual Diff / Slide Review NO; Basophils Absolute Auto 100 /uL (0-100); Basophils Percent Auto 0.8 % (0-2); Eosinophils Absolute Auto 100 /uL (0-450); Eosinophils Percent Auto 1.6 % (2-4); Hematocrit 44.5 % (36-46); Lymphocytes Absolute Auto 3900 /uL (1100-4500); Lymphocytes Percent Auto 48.4 % (25-40); Mean Corpuscular HGB Conc 33.7 % (30-36); Mean Corpuscular Hemoglobin 28.5 PG (26-34); Mean Corpuscular Volume 84.6 fL (80-100); Monocytes Absolute Auto 400 /uL (0-900); Monocytes Percent Auto 5.1 % (3-14); Neutrophils Absolute Auto 3600 /uL (1500-7000); Neutrophils Percent Auto 44.1 % (50-75); Platelet Count 208 X10^3/uL (150-400); Red Blood Cell Count 5.26 X10^6/uL (4.0-5.2); Red Cell Distribution Width 13.3 % (11.6-14.8); White Blood Cell Count 8.1 X10^3/uL (4.5-11.0)
[2023-07-26 04:05] LABS: Prothrombin Time 11.2 SECONDS (10.1-12.7)
[2023-07-26 04:08] LABS: PTT Partial Thromboplastin Tim 29 SECONDS (26-36)
[2023-07-26 04:10] LABS: Alanine Aminotransferase 30 IU/L (<35); Albumin 4.2 g/dL (3.5-5.0); Albumin Globulin Ratio 1.3 (1.0-2.8); Alkaline Phosphatase 94 U/L (38-126); Aspartate Aminotransferase 54 IU/L (14-36); BUN Creatinine Ratio 27.4 (6-22); Bilirubin Total 0.3 mg/dL (0.2-1.3); Blood Urea Nitrogen 23 mg/dL (7-17); Calcium 9.2 mg/dL (8.4-10.2); Carbon Dioxide 20 mmol/L (22-32); Chloride 105 mmol/L (98-107); Creatine Kinase 75 U/L (30-135); Estimated Glomerular Filt Rate > 60 mL/min (>60); Globulin 3.2 g/dL (1.7-4.1); Glucose 175 mg/dL (80-110); HEMOLYSIS < 15 (0-50); Lipase 363 U/L (23-300); Magnesium 1.8 mg/dL (1.6-2.3); Potassium 3.4 mmol/L (3.4-5.1); Sodium 139 mmol/L (137-145); Total Protein 7.4 g/dL (6.3-8.2)
[2023-07-26 04:21] LABS: Troponin I < 0.012 ng/mL (0.01-0.034)
[2023-07-26] MEDS: ONDANSETRON 4 MG/2 ML INJ IV (04:28)
== END 2023-07-26 06:08 | disposition short-term general hospital (02) ==
PROVIDERS: Emergency Provider Emergency Medicine; PCP Internal Medicine
DX: I44.2 Atrioventricular block, complete (principal); I48.91 Unspecified atrial fibrillation; S00.83XA Contusion of other part of head, initial encounter; R55 Syncope and collapse
CPT/HCPCS: 36415; 80053; 82550; 83690; 83735; 84484; 85025; 85610; 85730; 93005; 93010; 96361; 96374; 99284; 99291; G0390; J2405

== ENCOUNTER → 2023-11-01 08:08 | Outpatient (CLI) | payer MEDICARE, OTHER, SELFPAY ==
[2023-11-01 09:17] LABS: Alanine Aminotransferase 31 IU/L (<35); Albumin Globulin Ratio 1.4 (1.0-2.8); Alkaline Phosphatase 61 U/L (38-126); Aspartate Aminotransferase 60 IU/L (14-36); BUN Creatinine Ratio 32.4 (6-22); Bilirubin Total 0.6 mg/dL (0.2-1.3); Blood Urea Nitrogen 23 mg/dL (7-17); Calcium 9.2 mg/dL (8.4-10.2); Carbon Dioxide 27 mmol/L (22-32); Chloride 105 mmol/L (98-107); Estimated Glomerular Filt Rate > 60 mL/min (>60); Globulin 2.9 g/dL (1.7-4.1); Glucose 95 mg/dL (80-110); HEMOLYSIS 48 (0-50); Potassium 4.4 mmol/L (3.4-5.1); Sodium 137 mmol/L (137-145); Total Protein 6.9 g/dL (6.3-8.2)
== END ==
PROVIDERS: PCP Internal Medicine; Referring Provider Physician Assistant; Visit Provider Physician Assistant
DX: R74.8 Abnormal levels of other serum enzymes (principal)
CPT/HCPCS: 36415; 80053

== ENCOUNTER → 2023-11-12 08:40 | Outpatient (CLI) | payer MEDICARE, OTHER, SELFPAY ==
--- NOTE | 2023-11-12 08:42 | DI.US.S_ITS ---
PROCEDURE: US ABDOMEN LIMITED INDICATIONS: ELEVATED LIVER ENZYMES TECHNIQUE: Real-time focused scanning was performed of the abdomen, with image documentation. COMPARISON: None. FINDINGS: Liver measures 11.4 cm. Multiple mobile areas of increased echogenicity are present in the gallbladder the largest measuring 7 mm. Wall thickness is normal measuring 2.1 mm. Common bile duct measures 3.9 mm. IMPRESSION: Cholelithiasis without cholecystitis. Dictated by: Marie Simmons M.D. on 11/12/2023 at 15:27 Approved by: Marie Simmons M.D. on 11/12/2023 at 15:31
== END ==
LOC: US 08:41
PROVIDERS: PCP Internal Medicine; Referring Provider Physician Assistant; Visit Provider Physician Assistant
DX: K80.20 Calculus of gallbladder without cholecystitis without obstruction (principal); R74.8 Abnormal levels of other serum enzymes
CPT/HCPCS: 76705

== ENCOUNTER → 2024-02-22 07:45 | Outpatient (CLI) | payer MEDICARE, OTHER, SELFPAY ==
[2024-02-22 10:15] LABS: Alanine Aminotransferase 30 IU/L (<35); Albumin 4.3 g/dL (3.5-5.0); Albumin Globulin Ratio 1.8 (1.0-2.8); Alkaline Phosphatase 87 U/L (38-126); Aspartate Aminotransferase 55 IU/L (14-36); BUN Creatinine Ratio 26.8 (6-22); Bilirubin Total 0.6 mg/dL (0.2-1.3); Blood Urea Nitrogen 22 mg/dL (7-17); Calcium 8.9 mg/dL (8.4-10.2); Carbon Dioxide 27 mmol/L (22-32); Chloride 105 mmol/L (98-107); Estimated Glomerular Filt Rate > 60 mL/min (>60); Globulin 2.4 g/dL (1.7-4.1); Glucose 94 mg/dL (80-110); HEMOLYSIS < 15 (0-50); Potassium 4.4 mmol/L (3.4-5.1); Sodium 139 mmol/L (137-145); Total Protein 6.7 g/dL (6.3-8.2)
== END ==
PROVIDERS: PCP Internal Medicine; Referring Provider Physician Assistant; Visit Provider Physician Assistant
DX: R74.8 Abnormal levels of other serum enzymes (principal)
CPT/HCPCS: 36415; 80053

== ENCOUNTER → 2024-08-25 08:09 | Outpatient (CLI) | payer MEDICARE, OTHER, SELFPAY ==
--- NOTE | 2024-08-25 | DI.MG.S_ITS ---
BILATERAL DIGITAL SCREENING MAMMOGRAM 3D/2D WITH CAD: 08/25/2024 CLINICAL: Routine screening. Comparison is made to exams dated: 03/26/2023 mammogram, 03/22/2022 mammogram, and 10/12/2020 mammogram - [facility]. There are scattered areas of fibroglandular density (category b / 25%-50% glandular tissue). Current study was also evaluated with a Computer Aided Detection (CAD) system. No significant masses, calcifications, or other findings are seen in either breast. There has been no significant interval change. IMPRESSION: NEGATIVE There is no mammographic evidence of malignancy. A 1 year screening mammogram is recommended. Based on the Tyrer Cuzick model (a risk assessment model) the patient's lifetime risk is 6.5% and her 10 year risk is 3.4%. According to the ACR, ACS, and NCCN guidelines, an annual breast MRI exam along with mammogram is recommended if the patient's lifetime risk is 20% or greater. This exam was interpreted at Station ID: [id number]. NOTE: For mammograms, a report in lay terms will be sent to the patient. Approximately 15% of breast malignancies will not be visualized mammographically. In the management of a palpable breast mass, a negative mammogram must not discourage biopsy of a clinically suspicious lesion. Electronically Signed By: Evens win/eleonora:08/25/2024 10:15:20 letter sent: Normal Exam ACR BI-RADS Category 1: Negative
== END ==
PROVIDERS: PCP Internal Medicine; Referring Provider Internal Medicine; Visit Provider Internal Medicine
DX: Z12.31 Encounter for screening mammogram for malignant neoplasm of breast (principal)
CPT/HCPCS: 77063; 77067

== ENCOUNTER → 2025-04-02 12:40 | Outpatient (CLI) | payer MEDICARE, OTHER, SELFPAY ==
--- NOTE | 2025-04-02 12:41 | DI.RAD.S_ITS ---
PROCEDURE: XR DEXA AXIAL SKELETON INDICATIONS: osteopenia COMPARISON: [facility], CR, XR DEXA AXIAL SKELETON, 03/26/2023, 10:01. FINDINGS: Lumbar Spine: Bone mineral density 0.840 g/cm2, T score -1.9, previously -2.0. Left Femoral Neck: Bone mineral density is 0.793 g/cm2, T score -0.5. Left Hip: Bone mineral density is 0.854 g/cm2, T score -0.7, -0.4. Fracture Risk Calculation (when applicable): 10-year fracture risk of a major osteoporotic fracture 7.8 percent and of a hip fracture 0.5 percent. (T score greater or equal to -1.0 to: NORMAL) (T score from -1.1 to -2.4: OSTEOPENIA) (T score less than or equal to -2.5: OSTEOPOROSIS) IMPRESSION: Lumbar spine osteopenia Follow-up guidelines as follows: Osteoporosis: Consider a repeat DEXA and Vertebral Fracture Assessment (VFA) exam in 2 years or sooner if medically necessary, to reassess this patient's status. Osteopenia: Consider a repeat DEXA in 2-3 years to reassess this patient's status, or if there is a new clinical indication. Normal: Consider a repeat DEXA in 5 years or sooner, or if there is a new clinical indication. All treatment decisions require clinical judgment and consideration of individual patient factors, including patient preferences, comorbidities, previous drug use, risk factors not captured in the FRAX model (e.g., frailty, falls, vitamin D deficiency, increased bone turnover, interval significant decline in bone density ) and possible under- or over-estimation of fracture risk by FRAX. In addition, the NOF Guide recommends that FDA-approved medical therapies be considered in postmenopausal women and men age >= 50 years with a: * Hip or vertebral (clinical or morphometric) fracture * T-score of <=-2.5 at the spine or hip * Ten-year fracture probability by FRAX of >= 3% for hip fracture or >=20% for major osteoporotic fracture. Approved by: Flynn Pérez M.D. on 04/02/2025 at 16:50
== END ==
LOC: RAD 12:41
PROVIDERS: PCP Internal Medicine; Referring Provider Internal Medicine; Visit Provider Internal Medicine
DX: M85.89 Other specified disorders of bone density and structure, multiple sites (principal)
CPT/HCPCS: 77080

== ENCOUNTER → 2025-04-06 07:23 | Outpatient (CLI) | payer MEDICARE, OTHER, SELFPAY ==
[2025-04-06 07:56] LABS: Hematocrit 44.9 % (36-46); Hemoglobin 14.9 g/dL (12.0-16.0); Mean Corpuscular HGB Conc 33.2 % (30-36); Mean Corpuscular Hemoglobin 28.2 PG (26-34); Mean Corpuscular Volume 85.0 fL (80-100); Platelet Count 161 X10^3/uL (150-400)
[2025-04-06 08:18] LABS: Alanine Aminotransferase 35 IU/L (<35); Albumin 4.2 g/dL (3.5-5.0); Albumin Globulin Ratio 1.6 (1.0-2.8); Alkaline Phosphatase 79 U/L (38-126); Blood Urea Nitrogen 20 mg/dL (7-17); Calcium 9.1 mg/dL (8.4-10.2); Carbon Dioxide 28 mmol/L (22-32); Chloride 104 mmol/L (98-107); Cholesterol 232 mg/dL (140-199); Estimated Glomerular Filt Rate > 60 mL/min (>60); Globulin 2.6 g/dL (1.7-4.1); Glucose 93 mg/dL (70-99); HDL Cholesterol 73 mg/dL (40-60); HEMOLYSIS < 15 (0-50); Potassium 4.4 mmol/L (3.4-5.1); Sodium 137 mmol/L (137-145); Total Protein 6.8 g/dL (6.3-8.2); Triglycerides 76 mg/dL (35-150)
== END ==
PROVIDERS: PCP Internal Medicine; Referring Provider Internal Medicine; Visit Provider Internal Medicine
DX: E78.2 Mixed hyperlipidemia (principal); R74.8 Abnormal levels of other serum enzymes; I44.2 Atrioventricular block, complete
CPT/HCPCS: 36415; 80053; 80061; 85027

== ENCOUNTER → 2025-09-21 08:28 | Outpatient (CLI) | payer MEDICARE, OTHER, SELFPAY ==
--- NOTE | 2025-09-21 08:29 | DI.MG.S_ITS ---
MM screening mammo BI: 09/21/2025. BI-RADS: 1 CLINICAL: 69-year old female for bilateral screening mammogram. Tyrer-Cuzick lifetime risk of 5.1%. No personal or first-degree family history of breast cancer. PRIOR EXAMS 08/25/2024, 03/26/2023, 03/22/2022, 10/12/2020. MAMMOGRAPHY TECHNIQUE: 2D and 3D (tomosynthesis) digital mammographic views obtained, with additional images as needed for full coverage. Current study was also evaluated with a Computer Aided Detection (CAD) system. DENSITY B. There are scattered areas of fibroglandular density. MAMMOGRAPHY FINDINGS Left: An implanted medical consultant obscures a portion of the breast/axilla. Bilateral: No suspicious mass, asymmetry, microcalcification, or other abnormality seen. IMPRESSION: * No evidence of malignancy. RECOMMENDATIONS Bilateral * Annual screening mammography. OVERALL ASSESSMENT CATEGORY BI-RADS-1: Negative. The [employer] recommends annual screening mammography beginning at age 40 for women with average risk of breast cancer. ELECTRONICALLY SIGNED: Jaqueline Dickson M.D. on 09/22/2025 at 09:18:00 AM PT Interpreting Station ID: [id number]
== END ==
LOC: MAMMO 08:29
PROVIDERS: PCP Internal Medicine; Referring Provider Internal Medicine; Visit Provider Internal Medicine
DX: Z12.31 Encounter for screening mammogram for malignant neoplasm of breast (principal)
CPT/HCPCS: 77063; 77067

== ENCOUNTER → 2025-09-22 16:37 | Outpatient (CLI) | payer MEDICARE, OTHER, SELFPAY ==
--- NOTE | 2025-09-22 16:38 | DI.RAD.S_ITS ---
PROCEDURE: XR CERVICAL SPINE 4V OR 5V INDICATIONS: neck pain TECHNIQUE: 5 views of the cervical spine were acquired. COMPARISON: None. FINDINGS: Bones: No fractures or dislocations to the T1 level. No suspicious bony lesions. Loss of cervical spine lordosis at C4. Mild anterior superior height loss at C4. Retrolisthesis of C4 on C5 measuring 0.4 cm. Prominent posterior disc osteophyte complex at C4. Disc space height loss most pronounced at C4-C5 and C5-C6. Suspected mild anterior motion of C3 on C4 with flexion measuring 0.3 cm. Soft tissues: Prevertebral soft tissues are normal in thickness. Left pacemaker. IMPRESSION: Suspect mild dynamic anterior instability at C3 on C4 with flexion. Mild anterior superior height loss at C4. Moderate to severe degenerative changes at C4-C5 and C5-C6. Consider MRI and/or CT for further evaluation. Dictated by: Jonatan Cifuentes M.D. on 09/23/2025 at 11:28 Approved by: Jonatan Cifuentes M.D. on 09/23/2025 at 11:35
== END ==
PROVIDERS: PCP Internal Medicine; Referring Provider Internal Medicine; Visit Provider Internal Medicine
DX: M47.812 Spondylosis without myelopathy or radiculopathy, cervical region (principal)
CPT/HCPCS: 72050